=== PATIENT | male | born 1995 | race Caucasian/White ===

== ENCOUNTER 2023-10-22 20:16 | Emergency (ER) | payer SELFPAY ==
[~2023-10-22] VITALS: Ht 180.3 cm; Wt 121.6 kg
[2023-10-22 20:44] VITALS: BP 140/76; PULSE 86; RESP 20; TEMP 97.1; O2SAT 98
[2023-10-22] MEDS ORDERED: IBUP-2213 PO (23:35)
[2023-10-22 23:50] VITALS: BP 123/78; PULSE 73; RESP 16; TEMP 98; O2SAT 98
== END 2023-10-22 23:50 | disposition home or self-care (01) ==
LOC: MED 20:16
DX: M25.531 Pain in right wrist (principal); Z79.899 Other long term (current) drug therapy
CPT/HCPCS: 73110; 99283